=== PATIENT | female | born 1965 | race Caucasian/White ===

== ENCOUNTER 2024-08-08 14:49 | Emergency (ER) | payer SELFPAY ==
--- NOTE | ~2024-08-08 | CT_ITS ---
CLINICAL HISTORY: R facial swelling, ?dental abscess CT maxillofacial with contrast Comparison: None Findings: Right pre mandibular subcutaneous edema. Edema also noted anterior to right maxilla. Lucency noted around right upper cuspid. Lucency also noted around right upper 1st premolar. No kassi bone destruction is identified. Findings consistent with periodontal abscess. No fluid collection is identified. Right maxillary sinus thickening noted. Remaining sinuses and mastoids clear. No acute fracture or dislocation identified. Mandible and TMJs are unremarkable. Ocular globes symmetric and unremarkable. Impression: Right facial subcutaneous edema Periodontal abscess root of right upper cuspid and premolar This document has been electronically signed by: Luca Moctezuma MD on 08/08/2024 21:54:54
[2024-08-08 15:40] VITALS: BP 147/72; PULSE 96; RESP 18; TEMP 36.8; O2SAT 98; BMI 38.3
--- NOTE | 2024-08-08 15:41 | ED_ITS ---
HPI - Dental/Oral General Chief complaint: Dental/Oral Stated complaint: dental issues Time Seen by Provider: 08/08/24 20:36 Source: patient Limitations: no limitations History of Present Illness ED Provider: Shweta Lassiter PA-C HPI Narrative: 58-year-old female presents with dental pain x4 days. Patient states she had broken a tooth months ago, it just started bothering her this week. She has developed progressive facial swelling on the right side, with purulent drainage from the fractured tooth. Denies fever. Related Data Previous Rx's ?Medication ?Instructions ?Recorded clindamycin HCl 150 mg capsule 450 mg (3 x 150 mg) PO Q8H #89 caps 08/08/24 oxycodone 5 mg tablet 5 mg PO Q8H PRN pain #10 tabs 08/08/24 Allergies Allergy/AdvReac Type Severity Reaction Status Date / Time Penicillins Allergy Rash Verified 08/08/24 15:42 Review of Systems 2 Review of Systems: Yes all other systems are reviewed and are negative Constitutional: Constitutional: Denies fatigue, Denies fever(s) and Denies headache(s) ENT: Reports dental pain, Denies dizziness, Reports facial pain and Denies headache(s) Gastrointestinal: Gastrointestinal: Denies nausea and Denies vomiting Neurologic: Denies dizziness and Denies headache(s) Endocrine: Endocrine: Denies fatigue PMFSH Past Medical History Attestation statement: The following information was validated with the patient. Social History Social History Smoked in Last 30 Days: Yes Use of substances other than those prescribed or required for medical reasons: No Advance Directives: No Advance Directives Information Provided: No Patient : No Physical Exam 2 Vital Signs: Vital Signs: Last Vital Signs Temp 97 F 08/08/24 21:18 Pulse 85 08/08/24 21:18 Resp 16 08/08/24 21:18 BP 143/83 H 08/08/24 21:18 Pulse Ox 96 08/08/24 21:18 O2 Del Method Room Air 08/08/24 21:18 BMI result Body Mass Index 38.3 Const: Other: Alert Orientation/consciousness: patient oriented x3 HEENT: Other: Tooth 2. Is fractured, with purulent drainage along the gingiva adjacent to the hard palate, no trismus or drooling the right side of the face is swollen over the Resp: Effort & Inspection: normal respiratory effort Cardio: Other: Normal peripheral perfusion Skin: Other: Warm dry no rash Neuro: General: patient oriented x3, gait normal, no focal motor deficits and CN's II-XI intact bilaterally Psych: Other: Cooperative Course Course Course Narrative: This is a Rapid Medical Exam performed in triage by Eileen De La Cruz PA-C. Full HPI, ROS and PE to be performed by primary ED provider. 58-year-old female presenting to the ED c/o right-sided facial pain and swelling x Saturday. States drainage in mouth. PE: Very poor dentition. Right-sided facial swelling appreciated with intraoral swelling. No focal fluctuance/induration Plan: Labs, facial CT Medications Administered Discontinued Medications Generic Name Dose Route Start Last Admin Trade Name Freq PRN Reason Stop Dose Admin Iohexol 85 ml 08/08/24 21:11 08/08/24 21:12 Iohexol 350 Mg/Ml 100 Ml Infus..Btl IV 08/08/24 21:12 85 ml ONCE ONE Administration Medical Decision Making Medical Decision Making [facility] Narrative: 58-year-old female presents with dental pain x4 days. Patient states she had broken a tooth months ago, it just started bothering her this week. She has developed progressive facial swelling on the right side, with purulent drainage from the fractured tooth. Denies fever. Problem: Dental infection History: Per patient I have considered the following differential diagnoses: Dental infection Plan: CT max face was ordered from triage, we will be giving Toradol for her pain and starting empiric clindamycin due to her allergy profile. I have independently reviewed the following tests: Labs: Leukocytosis with left shift, no electrolyte abnormality, inflammatory markers elevate CT max face:mpression: Right facial subcutaneous edema Periodontal abscess root of right upper cuspid and premolar The patient has an oral surgeon, she will call them Saturday Lab Data 08/08/24 18:15 08/08/24 18:15 Labs: Lab Results 08/08/24 Range/Units 18:15 WBC 14.7 H (4.8-10.8) X10*3/uL RBC 4.46 (4.20-5.50) X10*6/uL Hgb 14.5 (12.0-16.0) g/dl Hct 42.3 (37.0-47.0) % MCV 94.8 (80.0-98.0) fL MCH 32.5 (27.0-33.0) pg MCHC 34.3 (31.0-35.0) g/dl RDW 12.6 (11.0-16.0) % Plt Count 320 (160-400) X10*3/uL MPV 9.0 L (9.4-12.3) fL Immature Gran % (Auto) 0.2 (0.0-0.4) % Neut % (Auto) 73.4 H (45-73) % Lymph % (Auto) 18.9 L (20-40) % Crosby % (Auto) 6.7 (2-11) % Eos % (Auto) 0.3 (0-4) % Baso % (Auto) 0.5 (0-2) % Lymph # (Auto) 2.8 (1.2-4.9) X10*3/uL Crosby # (Auto) 1.0 (0.1-1.2) X10*3/uL Eos # (Auto) 0.1 (0.0-0.4) X10*3/uL Baso # (Auto) 0.1 (0.0-0.2) X10*3/uL Abs Immat Gran (auto) 0.03 (0.00-0.03) X10*3/uL Absolute Neuts (auto) 10.8 H (2.0-8.3) x10*3/uL Absolute Nucleated RBC 0.000 (0.0-0.012) X10*3/uL Nucleated RBC % (auto) 0.0 (0.0-0.2) /100WBC ESR 18 (0-20) MM/HR Sodium 140 (135-145) mmol/L Potassium 4.2 (3.3-5.1) mmol/L Chloride 102 (96-108) mmol/L Carbon Dioxide 28 (22-29) mmol/L Anion Gap 14 (12-20) BUN 9 (9-16) mg/dL Creatinine 0.76 (0.5-1.4) mg/dL Estim Creat Clear Calc 97.8 Estimated GFR > 60 Random Glucose 124 H (60-115) mg/dL Calcium 10.3 H (8.4-10.2) mg/dL C-Reactive Protein 1.97 H (< or = 0.50) mg/dL Discharge Plan Discharge Clinical Impression: Dental abscess Patient Disposition: Home, Self-Care Instructions: Dental Abscess (ED) Additional Instructions: Call your oral surgeon Saturday to schedule an appointment. Take the clindamycin as directed. This antibiotic may cause diarrhea, take a probiotic. Use [id number] Tylenol 1000 mg taken every 8 hours, alternated with the oxycodone, for your pain. Prescriptions: New clindamycin HCl 150 mg capsule 450 mg PO Q8H Qty: 89 0RF oxycodone 5 mg tablet 5 mg PO Q8H PRN (Reason: pain) Qty: 10 0RF Rx Instructions: Partial Fill upon patient request. Print Language: Bengali
[2024-08-08 18:31] LABS: MANUAL DIFF FLAG NO
[2024-08-08 18:32] LABS: Basophils Absolute Auto 0.1 X10*3/uL (0.0-0.2); Basophils Percent Auto 0.5 % (0-2); Eosinophils Absolute Auto 0.1 X10*3/uL (0.0-0.4); Eosinophils Percent Auto 0.3 % (0-4); Hematocrit 42.3 % (37.0-47.0); Hemoglobin 14.5 g/dl (12.0-16.0); Imm Gran Abs Auto 0.03 X10*3/uL (0.00-0.03); Imm Gran Pct Auto 0.2 % (0.0-0.4); Lymphocytes Absolute Auto 2.8 X10*3/uL (1.2-4.9); Lymphocytes Percent Auto 18.9 % (20-40); Mean Corpuscular HGB Conc 34.3 g/dl (31.0-35.0); Mean Corpuscular Hemoglobin 32.5 pg (27.0-33.0); Mean Corpuscular Volume 94.8 fL (80.0-98.0); Monocytes Percent Auto 6.7 % (2-11); Neutrophils Absolute Auto 10.8 x10*3/uL (2.0-8.3); Neutrophils Percent Auto 73.4 % (45-73); Platelet Count 320 X10*3/uL (160-400); Red Blood Count 4.46 X10*6/uL (4.20-5.50); Red Cell Distribution Width 12.6 % (11.0-16.0); White Blood Count 14.7 X10*3/uL (4.8-10.8)
[2024-08-08 18:43] LABS: Anion Gap 14 (12-20); Blood Urea Nitrogen 9 mg/dL (9-16); C Reactive Protein 1.97 mg/dL (< or = 0.50); Calcium 10.3 mg/dL (8.4-10.2); Carbon Dioxide 28 mmol/L (22-29); Chloride 102 mmol/L (96-108); Creatinine Clr Calc Pharmacy 97.8; Estimated Glomerular Filt Rate > 60; Glucose Random 124 mg/dL (60-115); Potassium 4.2 mmol/L (3.3-5.1); Sodium 140 mmol/L (135-145)
[2024-08-08 19:08] LABS: Erythrocyte Sedimentation Rate 18 MM/HR (0-20)
--- NOTE | 2024-08-08 20:48 | PC.NURSE ---
a&ox4. vss and up to date. pt presents to the ED c/o right sided upper facial swelling/pain/discharge x saturday. hx poor dentition. denies recent fevers/chills. noteable swelling to right side of face. 20gIV placed in the right forearm - pending CT scan to be completed. on RA w/o difficulty. managing secretions. no sob/wob noted. respirations even/unlabored. plan of care ongoing.
--- NOTE | 2024-08-08 21:00 | PC.NURSE ---
pt to CT at this time.
[2024-08-08] MEDS: iohexoL 350 MG/ML 100 ML INFUS..BTL 85 ML IV (21:12)
[2024-08-08 21:18] VITALS: BP 143/83; PULSE 85; RESP 16; TEMP 36.1; O2SAT 96
[2024-08-08] MEDS: Ketorolac Tromethamine 15 MG/ML VIAL IVPUSH (22:27)
[2024-08-08] MEDS: Clindamycin HCL 150 MG CAPSULE 450 MG PO (22:27)
[2024-08-08 22:38] VITALS: BP 143/83; PULSE 85; RESP 16; TEMP 36.1; O2SAT 96
== END 2024-08-08 22:38 | disposition home or self-care (01) ==
PROVIDERS: Physician Assistant; Emergency Provider Emergency Medicine; PCP Internal Medicine
DX: K04.7 Periapical abscess without sinus (principal); K08.89 Other specified disorders of teeth and supporting structures
CPT/HCPCS: 36415; 70487; 80048; 85025; 85652; 86140; 96374; 99284; J1885; Q9967

== ENCOUNTER → 2024-08-08 20:31 | Outpatient (BNV) | payer SELFPAY | PROVIDERS: Emergency Provider Emergency Medicine; PCP Internal Medicine; Visit Provider Radiology Diagnostic Radiology | DX: R22.0 Localized swelling, mass and lump, head (principal) | CPT/HCPCS: 70487 ==